=== PATIENT | male | born 2000 | race Caucasian/White ===

== ENCOUNTER 2024-03-27 12:28 | Emergency (ER) | payer MEDICAID ==
[~2024-03-27] VITALS: Ht 172.7 cm; Wt 75.0 kg
[2024-03-27 13:17] VITALS: BP 120/78; PULSE 120; RESP 16; TEMP 98.1; O2SAT 99
== END 2024-03-27 15:43 | disposition left against medical advice (07) ==
LOC: EMS 12:41
DX: R00.2 Palpitations (principal); Z53.21 Procedure and treatment not carried out due to patient leaving prior to being seen by health care provider